=== PATIENT | male | born 2000 | race Caucasian/White ===

== ENCOUNTER 2025-05-29 14:57 | Emergency (ER) | payer MEDICAID, OTHER ==
[~2025-05-29] VITALS: Ht 175.3 cm; Wt 64.0 kg
[2025-05-29 14:58] VITALS: PULSE 100; RESP 20; O2SAT 96
[2025-05-29 15:14] VITALS: BP 109/70; TEMP 36.9
[2025-05-29] MEDS ORDERED: ACET-2708 MT (16:54)
[2025-05-29] MEDS ORDERED: IBUP-1455 MT (16:54)
[2025-05-29 17:13] LABS: INFLUENZA TYPE A Presumptive Negative (Pres. Neg.)
[2025-05-29 17:14] LABS: INFLUENZA TYPE B Presumptive Negative (Pres. Neg.)
== END 2025-05-29 17:55 | disposition home or self-care (01) ==
LOC: ER 14:57
DX: B34.9 Viral infection, unspecified (principal); Z90.49 Acquired absence of other specified parts of digestive tract; Z20.822 Contact with and (suspected) exposure to COVID-19
CPT/HCPCS: 71045; 87070; 87426; 87430; 87804; 99284